=== PATIENT | male | born 1995 | race Caucasian/White ===

== ENCOUNTER 2019-05-30 05:40 | Day surgery (SDC) | payer OTHER ==
[2019-05-30] VITALS (7 sets, daily range): BP systolic 124–140; BP diastolic 66–87; PULSE 76–98; TEMP 98.6
[~2019-05-30] VITALS: Ht 170.2 cm; Wt 68.0 kg
[2019-05-30] MEDS ORDERED: LIQUIFILM TEARS15 ML OU (06:12)
--- NOTE | 2019-05-30 06:25 | NUR ---
Report given to CHAD Bargertrustee of estate nurse.
--- NOTE | 2019-05-30 06:30 | NUR ---
CHAD Barger into see patient at this time.
--- NOTE | 2019-05-30 06:35 | NUR ---
Patient is anxious about his surgery today. CHIKA Greenfield notified and states that he will bring some medicine over to administer to patient to help with anxiety.
--- NOTE | 2019-05-30 06:45 | NUR ---
CHIKA Greenfield into see patient.
--- NOTE | 2019-05-30 06:50 | NUR ---
Dr Bynum into see patient and notified of no H&P on chart.
--- NOTE | 2019-05-30 08:52 | NUR ---
Patient arrives back from PACU alert, denies nausea, reports 2/10 pain in left lower groin. Patient monitor applied, vitals stable. Patient's friend brought to bedside.
--- NOTE | 2019-05-30 09:00 | NUR ---
Patient given juice and muffin at this time. Patient educated that afer he is able to get some food in his stomach, he can start some oral pain medications. Patient voices that his pain goal would be to have no or 0/10 pain when he is discharged.
--- NOTE | 2019-05-30 09:25 | NUR ---
Patient tolerates muffin and juice without any nausea. Pain still 2/, will call Dr Bynum for post op pain medication orders.
--- NOTE | 2019-05-30 09:30 | NUR ---
Dr Bynum contacted at this time to obtain orders for post op pain medication control.
--- NOTE | 2019-05-30 10:15 | NUR ---
Patient up to restroom at this time. Patient is able to ambulate to restroom with standby assist and without any difficulties. Patient is able to void without any complications.
--- NOTE | 2019-05-30 10:20 | NUR ---
Patient reports that he has no pain at this time and states he feels good and ready to go home.
[2019-05-30] MEDS ORDERED: NORCO 325 MG-51 TAB PO (10:30)
--- NOTE | 2019-05-30 10:45 | NUR ---
Dismissal instructions gone over with patient and patient's friend. Both verbalize understanding and all questions answered.
--- NOTE | 2019-05-30 10:50 | NUR ---
Patient discharged via wheelchair to private vehicle patient's friend is driving at patient enterance.
== END 2019-05-30 10:50 | disposition home or self-care (01) ==
LOC: SDCO 05:40
DX: C62.12 Malignant neoplasm of descended left testis (principal); N50.89 Other specified disorders of the male genital organs; Z80.9 Family history of malignant neoplasm, unspecified
CPT/HCPCS: J0690; J1100; J1885; J2250; J2405; J2704; J3010; J7120